=== PATIENT | female | born 1960 | race Caucasian/White ===

== ENCOUNTER 2021-06-20 13:45 | Inpatient (IN) | payer OTHER ==
[~2021-06-20] VITALS: Ht 162.6 cm; Wt 138.8 kg
[~2021-06-20 13:45] MED LIST: COLACE 100MG C100 MG PO; GLIMEPIRIDE2 MG PO; IBUPROFEN600 MG PO; JANUVIA50 MG PO; NORCO 5-325 TA1 EACH PO
[2021-06-20 15:05] LABS: HEMOGLOBIN 15.1 gm/dl (12.3-15.3); RED BLOOD COUNT 5.4 M/UL (4.00-5.10); WHITE BLOOD COUNT 10.9 K/UL (4.5-11.0)
[2021-06-20 15:27] LABS: BUN/CREATININE RATIO 15 (0-10)
[2021-06-20 19:27] LABS: BORDETELLA PARAPERTUSSIS Not Detected (Not Detectd); BORDETELLA PERTUSSIS Not Detected (Not Detectd); CHLAMYDIA PNEUMONIAE Not Detected (Not Detectd); CORONAVIRUS HKU1 Not Detected (Not Detectd); CORONAVIRUS NL63 Not Detected (Not Detectd); CORONAVIRUS OC43 Not Detected (Not Detectd); CORONOAVIRUS 229E Not Detected (Not Detectd); HUMAN METAPNEUMOVIRUS Not Detected (Not Detectd); HUMAN RHINOVIRUS/ENTEROVIRUS Not Detected (Not Detectd); INFLUENZA A Not Detected (Not Detectd); INFLUENZA B Not Detected (Not Detectd); MYCOPLASMA PNEUMONIAE Not Detected (Not Detectd); PARAINFLUENZA VIRUS 1 Not Detected (Not Detectd); PARAINFLUENZA VIRUS 2 Not Detected (Not Detectd); PARAINFLUENZA VIRUS 3 Not Detected (Not Detectd); PARAINFLUENZA VIRUS 4 Not Detected (Not Detectd); RESPIRATORY SYNCYTIAL VIRUS Not Detected (Not Detectd)
[2021-06-20 21:01] LABS: SARS-CoV-2 NOT DETECTED (Not Detectd)
[2021-06-20] MEDS ORDERED: LOPRESSOR 25 MG25 MG PO (22:24)
[2021-06-21 02:41] LABS: HEMOGLOBIN 15.2 gm/dl (12.3-15.3); RED BLOOD COUNT 5.39 M/UL (4.00-5.10); WHITE BLOOD COUNT 10.1 K/UL (4.5-11.0)
[2021-06-21 03:07] LABS: BUN/CREATININE RATIO 11 (0-10)
[2021-06-21] MEDS ORDERED: HYDROCHLOROTHIA25 MG PO (07:20)
[2021-06-21] MEDS ORDERED: LISINOPRIL30 MG PO (07:21)
[2021-06-21] MEDS ORDERED: HYDROXYZINE HCL25 MG PO (07:22)
[2021-06-21] MEDS ORDERED: DRISDOL1250 MCG PO (16:20)
[2021-06-21] MEDS ORDERED: HUMALOG100 UNIT/3 INJ (16:21)
[2021-06-21] MEDS ORDERED: CRESTOR10 MG PO (16:22)
[2021-06-21] MEDS ORDERED: OMEGA-3 ACID ETH1 GM PO (16:22)
[2021-06-21] MEDS ORDERED: CENTRUM SILVER1 EAC4 PO (16:23)
[2021-06-21] MEDS ORDERED: VITAMIN B-121000 MCG PO (16:23)
[2021-06-21] MEDS ORDERED: ASPIRIN EC81 MG PO (16:23)
[2021-06-22 07:25] LABS: RED BLOOD COUNT 5.18 M/UL (4.00-5.10); WHITE BLOOD COUNT 11.5 K/UL (4.5-11.0)
[2021-06-22 08:15] LABS: BUN/CREATININE RATIO 19 (0-10)
[2021-06-23 09:21] LABS: BUN/CREATININE RATIO 36 (0-10)
[2021-06-23] MEDS ORDERED: FUROSEMIDE40 MG PO (10:18)
[2021-06-23] MEDS ORDERED: HYDROXYZINE HCL25 MG PO (10:18)
== END 2021-06-23 13:15 | disposition home or self-care (01) | DRG 291 ==
LOC: ER1 13:45 → M/S 19:06 → CDU 19:06 → M/S 06-21 02:45
PROVIDERS: Physician Assistant; ADMIT Internal Medicine
PROC: B24BZZ4 Ultrasonography of Heart with Aorta, Transesophageal (ICD-10-PCS; principal; 2021-06-21)
DX: I11.0 Hypertensive heart disease with heart failure (principal); Z20.822 Contact with and (suspected) exposure to COVID-19; J96.01 Acute respiratory failure with hypoxia; I50.33 Acute on chronic diastolic (congestive) heart failure; I16.1 Hypertensive emergency; E66.2 Morbid (severe) obesity with alveolar hypoventilation; E87.1 Hypo-osmolality and hyponatremia; Z68.43 Body mass index [BMI] 50.0-59.9, adult; I16.0 Hypertensive urgency; F41.9 Anxiety disorder, unspecified; G47.33 Obstructive sleep apnea (adult) (pediatric); I08.1 Rheumatic disorders of both mitral and tricuspid valves; G47.00 Insomnia, unspecified; T50.2X5A Adverse effect of carbonic-anhydrase inhibitors, benzothiadiazides and other diuretics, initial encounter; E78.5 Hyperlipidemia, unspecified; Z79.4 Long term (current) use of insulin; Z90.710 Acquired absence of both cervix and uterus; Z80.6 Family history of leukemia; Z82.49 Family history of ischemic heart disease and other diseases of the circulatory system
CPT/HCPCS: ECHO; 36415; 36600; 71045; 80053; 81001; 82550; 82553; 82803; 82962; 83036; 83735; 83874; 83880; 84484; 85025; 85027; 85379; 87633; 93005; 93306; 93970; 94640; 94660; 94760; 99285; J0696; J1100; J1650; J1940; Q9967; U0002